=== PATIENT | female | born 1955 | race Asian ===

== ENCOUNTER 2021-12-28 07:06 | Day surgery (SDC) | payer MEDICAID ==
[~2021-12-28] VITALS: Ht 157.5 cm; Wt 59.0 kg
[2021-12-28] MEDS: fentaNYL CITRATE/PF 100 MCG/2 ML AMP ONE ×3 (09:07→09:11)
[2021-12-28] MEDS: MIDAZOLAM HCL 5 MG/5 ML VIAL ONE ×4 (09:07→09:13)
[2021-12-28] MEDS ORDERED: MIDAZOLAM HCL 5 MG/5 ML VIAL ONE (09:18)
[2021-12-28] MEDS ORDERED: fentaNYL CITRATE/PF 100 MCG/2 ML AMP ONE (09:18)
[2021-12-28 13:14] VITALS: BP_SYST 112
== END 2021-12-28 10:26 | disposition home or self-care (01) ==
LOC: SDS 07:06 → SMU 07:08 → SDS 10:26
PROVIDERS: ATTEND Internal Medicine
DX: R19.4 Change in bowel habit (principal); D12.5 Benign neoplasm of sigmoid colon; D12.0 Benign neoplasm of cecum; K57.30 Diverticulosis of large intestine without perforation or abscess without bleeding; K29.50 Unspecified chronic gastritis without bleeding; K44.9 Diaphragmatic hernia without obstruction or gangrene; Z79.899 Other long term (current) drug therapy; Z20.822 Contact with and (suspected) exposure to COVID-19
CPT/HCPCS: 36415 ×2; 45380; 45385; 43239; 87426; 87081; 88305; 88312; 88313; 99152; 99153; U0003; G0378; J2250; J3010